=== PATIENT | female | born 1980 | race Hispanic/Latino ===

== ENCOUNTER 2016-10-09 01:39 | Emergency (ER) | payer OTHER ==
[~2016-10-09] VITALS: Ht 170.2 cm; Wt 82.6 kg
--- NOTE | 2016-10-09 01:52 | ED CARDIAC/CP/PALPITATIONS ---
History of Present Illness General Chief Complaint: General Adult Stated Complaint: " BIBA PER EMS CHEST PRESSURE" Source: patient, old records, EMS Exam Limitations: no limitations Vital Signs & Intake/Output Vital Signs & Intake/Output Vital Signs Date Time Temp Pulse Resp B/P Pulse O2 O2 Flow FiO2 Ox Delivery Rate 10/09 0203 99 Room Air 10/09 0144 98.5 79 20 106/57 99 Room Air Allergies Coded Allergies: duloxetine (From CYMBALTA) (STOMACH PAINS 10/09/16) Triage Note: PT BIBA FROM HOME S/P BEING WOKEN UP BY CHEST PRESSURE IN LEFT CHEST THAT WRAPS AROUND LEFT RIBS TO BACK. LEFT ARM TINGELING ALL THE WAY DOWN TO THE HAND. STATES CHEST FEELS TIGHT SO IT FEELS HARD TO BREATHE. PMH OF ASTHMA, DENIES COUGH. DR FRANCO AT BEDSIDE TO [facility] PT Triage Nurses Notes Reviewed? yes : No Patient currently breastfeeds: No HPI: Patient was awoken with a sharp stabbing substernal chest pain that radiated to her left arm and around the left side of her chest into her back. The pain is constant. No aggravating or mitigating factors. She's had similar symptoms in the past she is an asthma attack and had a lot of coughing but she has not been coughing at all recently. Patient denies any fevers or chills. She rates the pain at 6 out of 10. Past History Travel History Traveled to [place] past 21 day No Medical History Any Pertinent Medical History? see below for history Respiratory: asthma Musculoskeletal: chronic back pain Psychiatric: anxiety Surgical History Surgical History: non-contributory Psychosocial History What is your primary language Kazakh Tobacco Use: Never used ETOH Use: occasional use Illicit Drug Use: denies illicit drug use Family History Hx Contributory? No Review of Systems Review of Systems Constitutional: Reports: no symptoms. EENTM: Reports: no symptoms. Respiratory: Reports: no symptoms. Cardiovascular: Reports: see HPI, chest pain. GI: Reports: no symptoms. Genitourinary: Reports: no symptoms. Musculoskeletal: Reports: no symptoms. Skin: Reports: no symptoms. Neurological/Psychological: Reports: no symptoms. Hematologic/Endocrine: Reports: no symptoms. Immunologic/Allergic: Reports: no symptoms. All Other Systems: Reviewed and Negative Physical Exam Physical Exam General Appearance: well developed/nourished, alert, awake, anxious, moderate distress Head: atraumatic, normal appearance Eyes: Bilateral: PERRL, EOMI. Ears, Nose, Throat: normal pharynx, normal ENT inspection, hearing grossly normal Neck: normal inspection, supple, full range of motion, NO JVD Respiratory: normal breath sounds, chest non-tender, no respiratory distress, lungs clear Cardiovascular: regular rate/rhythm, normal peripheral pulses Gastrointestinal: normal bowel sounds, soft, non-tender Back: normal inspection, normal range of motion Extremities: normal inspection, normal capillary refill, normal range of motion, no edema Neurologic/Psych: no motor/sensory deficits, awake, alert, oriented x 3, normal mood/affect Skin: intact, normal color, warm/dry Core Measures ACS in differential dx? Yes ASA ordered for poss ACS? No-ACS ruled out Severe Sepsis Present: No Septic Shock Present: No Progress Differential Diagnosis: AMI, atrial fibrillation, costochondritis, hyperthyroid, musculoskeletal pain, myocarditis, pericarditis, pneumonia, pneumothorax, pulmonary embolism Plan of Care: Orders Procedure Date/time Status Telemetry/Is Project Manager 10/10 147 Active TROPONIN LEVEL 10/10 147 Complete HUMAN BETA HCG SCREEN 10/10 147 Complete D-DIMER 10/10 147 Complete COMPREHENSIVE METABOLIC PANEL 10/10 147 Complete CBC WITHOUT DIFFERENTIAL 10/10 147 Complete EKG 10/09 144 Active Current Medications Sig/Ángela Start time Last Medication Dose Stop Time Status Admin Ketorolac 30 MG ONCE ONE 10/090 CAN Tromethamine 10/09 0201 (Toradol) Laboratory Tests 10/09/16 0156: Anion Gap 10, Estimated GFR > 60, BUN/Creatinine Ratio 24.3, Glucose 126 H, Calcium 9.4, Total Bilirubin 0.4, AST 17, ALT 32, Alkaline Phosphatase 60, Troponin I < 0.01, Total Protein 7.0, Albumin 4.0, Globulin 3.0, Albumin/ Globulin Ratio 1.3, Total Beta HCG NEGATIVE, D-Dimer 405 H, CBC w Diff NO MAN DIFF REQ, RBC 4.13 L, MCV 83.6, MCH 27.8, RDW 15.1 H, MPV 7.9, Gran % 47.0, Lymphocytes % 39.7, Monocytes % 7.5, Eosinophils % 5.2 H, Basophils % 0.6, Absolute Granulocytes 2.7, Absolute Lymphocytes 2.3, Absolute Monocytes 0.4, Absolute Eosinophils 0.3, Absolute Basophils 0, PUBS MCHC 33.2 Diagnostic Imaging: Viewed by Me: CT Scan. Discussed w/RAD: CT Scan. Radiology Impression: PATIENT: SONIDO MORGAN PRESENT AGE: 35 PATIENT ACCOUNT NO: [id number] : 78 LOCATION: [facility] ORDERING PHYSICIAN: NITO FRANCO MD SERVICE DATE: 10/09/16 EXAM TYPE: CAT - CTA CHEST-PULMONARY EMBOLISM EXAMINATION: CT ANGIOGRAM OF THE CHEST WITH AND WITHOUT CONTRAST (CT PULMONARY ANGIOGRAM FOR PE) CLINICAL INFORMATION: Chest pain and elevated d-dimer. Evaluate for acute pulmonary embolism. COMPARISON: No relevant prior imaging available. TECHNIQUE: Prior to contrast administration, noncontrast localization images were obtained. Subsequently, multidetector volumetric imaging was performed from the thoracic inlet to below the diaphragms following the administration of 95 mL Optiray 350 intravenous contrast. No contrast reaction reported. Sagittal, coronal, and MIP oblique sagittal reformatted images were obtained on the CT workstation, uploaded to PACS, and reviewed. Total exam dose-length product 445.38 mGy-cm. FINDINGS: The timing of the contrast bolus injection provides adequate opacification of the pulmonary arterial vasculature. There is no central luminal filling defect to suggest the presence of an acute pulmonary embolism. Lung volumes are low. There is bibasilar subsegmental atelectasis. No overt consolidative disease. No pleural effusion or pneumothorax. There are two 3 mm pulmonary nodules within the right lower lobe adjacent to the major fissure one of which is well illustrated on axial image 191 of 399 series 2. These findings most likely represent intrapulmonary lymph nodes. A small calcified granuloma is also visualized within the right upper lobe best illustrated on axial image 176. The size of the heart is normal and there is no pericardial effusion. The thoracic aorta is normal and the origins of the major aortic branches are patent. There is no mediastinal or hilar adenopathy. No axillary adenopathy is visualized within the [id number] this examination. Visualized portions of the thoracic outlet including the thyroid gland are unremarkable. The chest wall is intact. No acute rib fracture. Visualized portions of the upper abdominal cavity reveal no abnormal finding. IMPRESSION: Lung volumes are low. There is no overt consolidative disease or effusion. There is no central luminal filling defect within the pulmonary arterial vessels to suggest the presence of an acute pulmonary embolism. VTE: negative DICTATED BY: JUNG FLOYD MD DATE/TIME DICTATED:10/09/16358 SYSTEM SPECIALIST:SATYA DATE/TIME TRANSCRIBED:358 CONFIDENTIAL, DO NOT COPY WITHOUT APPROPRIATE AUTHORIZATION. < Electronically signed in Other Vendor System> SIGNED BY: JUNG FLOYD MD 10/09/16 0414 Pre-Hospital EKG: NSR, no ST T wave changes Initial ED EKG: NSR, no ST T wave changes Rhythm Strip: normal sinus rhythm Departure Departure Disposition: HOME OR SELF CARE Condition: Stable Clinical Impression Primary Impression: Chest pain, unspecified Qualifiers: Chest pain type: other chest pain Qualified Code: R07.89 - Other chest pain Secondary Impressions: Anxiety Additional Instructions: RETURN IF SYMPTOMS WORSEN OR FOR ANY CONCERNS Departure Forms: Customer Survey General Discharge Information Critical Care Note Critical Care Note Critical Care Time: non-applicable
[2016-10-09 02:11] LABS: ABSOLUTE BASOPHIL COUNT 0 /CUMM (0.0-0.2); ABSOLUTE EOSINOPHIL COUNT 0.3 /CUMM (0.0-0.7); ABSOLUTE GRANULOCYTE CT 2.7 /CUMM (1.4-6.5); ABSOLUTE LYMPH COUNT 2.3 /CUMM (1.2-3.4); ABSOLUTE MONOCYTE COUNT 0.4 /CUMM (0.10-0.60); BASOPHIL % 0.6 % (0.0-2.0); EOSINOPHIL % 5.2 % (0-5); HEMATOCRIT 34.5 % (37-47); MEAN CORPUSCULAR HGB 27.8 PG (27.0-31.0); MEAN CORPUSCULAR HGB CONC 33.2 G/DL (33.0-37.0); MEAN CORPUSCULAR VOLUME 83.6 FL (81.0-99.0); MEAN PLATELET VOLUME 7.9 FL (7.4-10.4); PLATELET COUNT 237 /CUMM (130-400); RBC DISTRIBUTION WIDTH 15.1 % (11.5-14.5); RED BLOOD CELL CT 4.13 /CUMM (4.20-5.40); WHITE BLOOD CELL COUNT 5.7 /CUMM (4.8-10.8)
--- NOTE | 2016-10-09 04:14 | CT SCAN REPORT ---
EXAMINATION: CT ANGIOGRAM OF THE CHEST WITH AND WITHOUT CONTRAST (CT PULMONARY ANGIOGRAM FOR PE) CLINICAL INFORMATION: Chest pain and elevated d-dimer. Evaluate for acute pulmonary embolism. COMPARISON: No relevant prior imaging available. TECHNIQUE: Prior to contrast administration, noncontrast localization images were obtained. Subsequently, multidetector volumetric imaging was performed from the thoracic inlet to below the diaphragms following the administration of 95 mL Optiray 350 intravenous contrast. No contrast reaction reported. Sagittal, coronal, and MIP oblique sagittal reformatted images were obtained on the CT workstation, uploaded to PACS, and reviewed. Total exam dose-length product 445.38 mGy-cm. FINDINGS: The timing of the contrast bolus injection provides adequate opacification of the pulmonary arterial vasculature. There is no central luminal filling defect to suggest the presence of an acute pulmonary embolism. Lung volumes are low. There is bibasilar subsegmental atelectasis. No overt consolidative disease. No pleural effusion or pneumothorax. There are two 3 mm pulmonary nodules within the right lower lobe adjacent to the major fissure one of which is well illustrated on axial image 191 of 399 series 2. These findings most likely represent intrapulmonary lymph nodes. A small calcified granuloma is also visualized within the right upper lobe best illustrated on axial image 176. The size of the heart is normal and there is no pericardial effusion. The thoracic aorta is normal and the origins of the major aortic branches are patent. There is no mediastinal or hilar adenopathy. No axillary adenopathy is visualized within the [id number] this examination. Visualized portions of the thoracic outlet including the thyroid gland are unremarkable. The chest wall is intact. No acute rib fracture. Visualized portions of the upper abdominal cavity reveal no abnormal finding. IMPRESSION: Lung volumes are low. There is no overt consolidative disease or effusion. There is no central luminal filling defect within the pulmonary arterial vessels to suggest the presence of an acute pulmonary embolism. VTE: negative
[2016-10-09 04:27] VITALS: BP 101/62
== END 2016-10-09 04:28 ==
LOC: ERH 01:39
PROVIDERS: Emergency Medicine
DX: R07.9 Chest pain, unspecified (principal); F41.9 Anxiety disorder, unspecified
CPT/HCPCS: 93005; 93010; 96372; J1885

== ENCOUNTER 2016-12-05 13:24 | Emergency (ER) | payer OTHER ==
[~2016-12-05] VITALS: Ht 170.2 cm; Wt 81.6 kg
[2016-12-05 13:28] VITALS: BP 107/57
[2016-12-05] MEDS ORDERED: ALLEGRA ALLERG180 M1 PO (14:01)
[2016-12-05] MEDS ORDERED: TESSALON PERLE100 M1 PO (14:03)
[2016-12-05] MEDS ORDERED: ADVAIR 250-501 EACH INH (14:03)
[2016-12-05] MEDS ORDERED: PROAIR HFA8.5 GM INH (14:03)
[2016-12-05] MEDS ORDERED: MEDROL4 M2 PO (14:03)
--- NOTE | 2016-12-05 14:04 | ED DYSPNEA/ASTHMA COMPLAINT ---
History of Present Illness General Chief Complaint: Wheezing/Asthma Stated Complaint: ASTHMA SYMPTOMS Source: patient Exam Limitations: no limitations Vital Signs & Intake/Output Vital Signs & Intake/Output Vital Signs Date Time Temp Pulse Resp B/P B/P Pulse O2 O2 Flow FiO2 Mean Ox Delivery Rate 12/05 1406 98 Room Air 12/05 1328 97.3 70 20 107/57 98 Room Air Allergies Coded Allergies: duloxetine (From CYMBALTA) (STOMACH PAINS 10/09/16) Reconcile Medications Albuterol Sulfate (Proair Hfa) 90 MCG HFA.AER.AD 2 PUF INH Q4-6 PRN PRN sob Benzonatate (Tessalon Perle) 100 MG CAPSULE 1 CAP PO TID PRN cough Fexofenadine HCl (Zeinab Allergy) 180 MG TABLET 1 TAB PO DAILY ALLERGIES ( Reported) Fluticasone/Salmeterol (Advair 250-50 Diskus) 250 MCG-50 MCG/DOSE BLST.W.DEV 1 PUF INH BID asthma Methylprednisolone. (Medrol) 4 MG TAB.DS.PK 1 DP PO AD asthma 6 on day 1 then reduce by one tablet daily until gone Triage Note: Pt presents to ER c/o of asthma symptoms. Pt states her asthma always acts up with the heat. PT states her inhalers are and for the past three days she has been coughing and wheezing. Triage Nurses Notes Reviewed? yes Onset: Gradual Duration: day(s): (3) Timing: recent history Severity: moderate Activities at Onset: none Prior Episodes/Possible Cause: occasional episodes : No Patient currently breastfeeds: No HPI: Patient is a 36-year-old female with history of asthma, takes daily Advair and albuterol as needed for her asthma presenting to the emergency department with chief complaint worsening asthma, dry cough over the past 3 days. No fevers or chills. No chest pain or palpitations. Reports shortness of breath only with coughing. She reports that she just moved to the area and does not have any refills on her asthma medications and she ran out. Try to get an appointment with her primary care physician but they called of the day of her appointment. Denies any abdominal pain. No nausea or vomiting. No sick contacts or recent travel. Denies any lower extremity swelling. Nothing seems to make it better or worse. (IGNACIOESTHER PANIAGUA) Past History Travel History Traveled to [place] past 21 day No Medical History Any Pertinent Medical History? see below for history Respiratory: asthma Musculoskeletal: chronic back pain Psychiatric: anxiety Surgical History Surgical History: non-contributory Psychosocial History What is your primary language Welsh Tobacco Use: Never used Family History Hx Contributory? No (ESTHER MENDEZ) Review of Systems Review of Systems Constitutional: Reports: no symptoms. Comments Review of systems: See HPI, All other systems negative. Constitutional, no chills fever or weight loss HEENT: No visual changes no sore throat Cardiovascular: No chest pain ,palpitation , orthopnea or ankle swelling Skin, no jaundice no rashes Respiratory: No sputum or hemoptysis GI: No nausea no vomiting : No dysuria No hematuria Muscle skeletal: no back pain, no neck pain, Neurologic: No numbness no confusion, no headaches Psych: No stress anxiety or depression,. Heme/endocrine: No bruising no bleeding no polyuria or polydipsia Immunology: No splenectomy or history of AIDS (ESTHER MENDEZ) Physical Exam Physical Exam General Appearance: well developed/nourished, no apparent distress, alert, awake , comfortable Respiratory: wheezing Comments: Well-developed well-nourished person in no acute distress HEENT: Normal EENT exam, extraocular motion intact, no nystagmus. Pupils equally round and reactive to light and accommodation. Nose is atraumatic. External auditory canal and Tympanic membranes clear. Pharynx normal. No swelling or edema. Neck: Supple, no lymphadenopathy, normal range of motion without pain or tenderness Back: Nontender, no CVA tenderness. Full range of motion Cardiovascular: Regular rate and rhythms no murmurs rubs or gallops, normal JVP Respiratory: Chest nontender. No respiratory distress.minimal inspiratory wheeze / breath sounds to auscultation bilaterally at the bases. Try reactive cough on exam. Extremity: No edema Neuro: Alert oriented x3 Skin: No appreciable rash on exposed skin, skin is warm and dry. Psych: Mood and affect is normal, memory and judgment is normal. Core Measures ACS in differential dx? No Severe Sepsis Present: No Septic Shock Present: No (ESTHER MENDEZ) Progress Differential Diagnosis: asthma, pneumonia, bronchitis, sinusitis, postnasal drip , asthma exacerbation Plan of Care: Current Medications Sig/Ángela Start time Last Medication Dose Stop Time Status Admin Albuterol Sulfate 3 ML ONCE ONE 12/05 1400 UNVr (Proventil) 12/05 1401 Ipratropium [place] 2.5 ML ONCE ONE 12/05 1400 UNVr (Atrovent) 12/05 1401 Initial ED EKG: none Comments: 12/05/2016 2:01:50 PM on arrival patient no acute distress, she does have bilateral wheezing. She is without her asthma medication and therefore took the heel over the past, place have made her asthma worse. Positive dry cough. No chest pain or shortness of breath except for cough. Patient likely has eczema exacerbation versus bronchitis. Patient will be treated symptomatically. We will start her back on her albuterol inhaler and her Advair Diskus. Patient will be also put on a short course of steroids and cough medication. She'll follow up with her primary care physician. Patient had moderate relief with breathing treatment here in the emergency department. Medications were sent to [facility] pharmacy in [place]. Patient nontoxic. Vitals within normal range. (ESTHER MENDEZ) Departure Departure Time of Disposition: 1401 Disposition: HOME OR SELF CARE Condition: Stable Clinical Impression Primary Impression: Asthma exacerbation Referrals: PATIENT HAS NO PRIMARY CARE DR (PCP/Family) Additional Instructions: Follow-up with your primary care physician called me about it. Take albuterol, Advair and prednisone as prescribed. Increase fluids. Take Tessalon Perles as prescribed for cough. Return for worsening symptoms or concerns. Departure Forms: Customer Survey General Discharge Information Prescriptions: Current Visit Scripts Benzonatate (Tessalon Perle) 1 CAP PO TID PRN cough #30 CAP Methylprednisolone. (Medrol) 1 DP PO AD #1 DP 6 on day 1 then reduce by one tablet daily until gone Albuterol Sulfate (Proair Hfa) 2 PUF INH Q4-6 PRN PRN sob #1 INHAL Fluticasone/Salmeterol (Advair 250-50 Diskus) 1 PUF INH BID #1 INHAL (ESTHER MENDEZ) PA/[employer] Co-Sign Statement Statement: ED Attending supervision documentation- I saw and evaluated the patient. I have also reviewed all the pertinent lab results and diagnostic results. I agree with the findings and the plan of care as documented in the PA's/[employer]'s documentation. x I have reviewed the ED Record and agree with the PA's/[employer]'s documentation. [] Additions or exceptions (if any) to the PAs/[employer]'s note and plan are summarized below: [] (NYLA CROSS,SHAUNNA) Critical Care Note Critical Care Note Critical Care Time: non-applicable (IGNACIO MANN,ESTHER)
== END 2016-12-05 14:26 ==
LOC: ERH 13:24
DX: J45.901 Unspecified asthma with (acute) exacerbation (principal)
CPT/HCPCS: 1263

== ENCOUNTER 2018-02-03 14:27 | Emergency (ER) | payer OTHER ==
[~2018-02-03] VITALS: Ht 167.6 cm; Wt 83.9 kg
[~2018-02-03 14:27] MED LIST: ADVAIR 250-501 EACH INH; ALLEGRA ALLERG180 M1 PO; LOMOTIL 2.5-0.1 EACH PO; MEDROL4 M2 PO; PROAIR HFA8.5 GM INH; TESSALON PERLE100 M1 PO
[2018-02-03 18:04] LABS: ABSOLUTE BASOPHIL COUNT 0 /CUMM (0.0-0.2); ABSOLUTE EOSINOPHIL COUNT 0.2 /CUMM (0.0-0.7); ABSOLUTE GRANULOCYTE CT 1.9 /CUMM (1.4-6.5); ABSOLUTE LYMPH COUNT 1.7 /CUMM (1.2-3.4); ABSOLUTE MONOCYTE COUNT 0.3 /CUMM (0.10-0.60); BASOPHIL % 0.6 % (0.0-2.0); EOSINOPHIL % 5.2 % (0-5); GRANULOCYTE % 45.4 % (42.2-75.2); HEMATOCRIT 31.8 % (37-47); MEAN CORPUSCULAR HGB 26.4 PG (27.0-31.0); MEAN CORPUSCULAR HGB CONC 32.4 G/DL (33.0-37.0); MEAN CORPUSCULAR VOLUME 81.4 FL (81.0-99.0); MEAN PLATELET VOLUME 7.7 FL (7.4-10.4); PLATELET COUNT 237 /CUMM (130-400); RBC DISTRIBUTION WIDTH 15.6 % (11.5-14.5); RED BLOOD CELL CT 3.91 /CUMM (4.20-5.40); WHITE BLOOD CELL COUNT 4.1 /CUMM (4.8-10.8)
[2018-02-03 19:14] VITALS: BP 109/56
--- NOTE | 2018-02-03 19:30 | RADIOLOGY REPORT ---
EXAMINATION: XR LUMBOSACRAL SPINE CLINICAL INFORMATION: Back pain. COMPARISON: CTA chest 10/09/2016. TECHNIQUE: 4 views of the lumbosacral spine were obtained. FINDINGS: Degenerative changes are noted at L1-L2 and L5-S1 with some mild disc space narrowing and osteophyte formation. No bony destructive lesions are seen. There is an old fracture involving the pubic rami on the left. No acute fracture is seen. IMPRESSION: 1. Old fractures left pubic rami. 2. Degenerative changes lumbosacral spine.
[2018-02-03] MEDS ORDERED: LIDODERM1 EACH TOP (19:55)
[2018-02-03] MEDS ORDERED: PERCOCET 5-3251 EACH PO (19:55)
[2018-02-03] MEDS ORDERED: NAPROSYN500 M1 PO (19:55)
--- NOTE | 2018-02-03 19:57 | ED GENERAL ADULT ---
History of Present Illness General Chief Complaint: Low Back Pain/Injury Stated Complaint: BACK PAIN Source: patient Exam Limitations: no limitations Vital Signs & Intake/Output Vital Signs & Intake/Output Vital Signs Date Time Temp Pulse Resp B/P B/P Pulse O2 O2 Flow FiO2 Mean Ox Delivery Rate 02/03 1914 97.7 77 18 109/56 100 Room Air 02/03 1814 Room Air 02/03 1513 97.3 86 18 109/69 98 Room Air Room Air Allergies Coded Allergies: duloxetine (From CYMBALTA) (STOMACH PAINS 10/09/16) Reconcile Medications Albuterol Sulfate (Proair Hfa) 90 MCG HFA.AER.AD 2 PUF INH Q4-6 PRN PRN sob Benzonatate (Tessalon Perle) 100 MG CAPSULE 1 CAP PO TID PRN cough Diphenoxylate HCl/Atropine (Lomotil 2.5-0.025 MG Tablet) 2.5 MG-0.025 MG TABLET 1 TAB PO 4 TIMES/DAY PRN diarrhea Fexofenadine HCl (Zeinab Allergy) 180 MG TABLET 1 TAB PO DAILY ALLERGIES ( Reported) Fluticasone/Salmeterol (Advair 250-50 Diskus) 250 MCG-50 MCG/DOSE BLST.W.DEV 1 PUF INH BID asthma Lidocaine (Lidoderm) 5 % ADH..PATCH 1 PAT TOP DAILY PRN pain may wear up to 12 hours Methylprednisolone. (Medrol) 4 MG TAB.DS.PK 1 DP PO AD asthma 6 on day 1 then reduce by one tablet daily until gone Naproxen (Naprosyn) 500 MG TABLET 1 TAB PO BID PRN pain Oxycodone HCl/Acetaminophen (Percocet 5-325 MG Tablet) 5 MG-325 MG TABLET 1 TAB PO Q4 HRS NEEDED PRN pain Triage Note: PT TO ED WITH C/O RIGHT BACK PAIN DOWN LEG, RIGHT GROIN AREA, WORSE WITH MOVEMENT, DENIES URINARY PAIN OR BURNING. TRIED, MOTRIN 800MG "HELPED A LITTLE BIT, BUT NOT MUCH". Triage Nurses Notes Reviewed? yes Onset: Gradual Duration: day(s): Timing: constant : No Patient currently breastfeeds: No HPI: 37-year female with a history of asthma, diabetes, anxiety, chronic back pain presenting with acute on chronic back pain 2 days. Patient reports she had a back injury several years ago with fractures to her vertebrae and pelvis after she fell through an attic floor. Since the injury she gets recurrent sciatica. Presents now with right lower back pain that radiates down her right back and right lower extremity, pain is worse with movement. Feels like her prior sciatica. Has been using 800 mg of ibuprofen at home with only mild relief. Denies fevers, IV drug use, dysuria, urinary frequency/urgency, saddle anesthesia, urinary/bowel incontinence/retention. (Berkley Helton) Past History Travel History Traveled to [place] past 21 day No Medical History Any Pertinent Medical History? see below for history Neurological: NONE EENT: NONE Cardiovascular: NONE Respiratory: asthma Gastrointestinal: NONE Hepatic: NONE Renal: NONE Musculoskeletal: chronic back pain Psychiatric: anxiety Endocrine: diabetes Blood Disorders: NONE Cancer(s): NONE ASSOCIATE CHEMIST/Reproductive: NONE Surgical History Surgical History: non-contributory Psychosocial History What is your primary language Kinyarwanda Tobacco Use: Never used ETOH Use: denies use Illicit Drug Use: denies illicit drug use Family History Hx Contributory? No (Berkley Helton) Review of Systems Review of Systems Constitutional: Reports: no symptoms. EENTM: Reports: no symptoms. Respiratory: Reports: no symptoms. Cardiovascular: Reports: no symptoms. GI: Reports: no symptoms. Genitourinary: Reports: no symptoms. Musculoskeletal: Reports: see HPI. Skin: Reports: no symptoms. Neurological/Psychological: Reports: no symptoms. Hematologic/Endocrine: Reports: no symptoms. Immunologic/Allergic: Reports: no symptoms. All Other Systems: Reviewed and Negative (Berkley Helton) Physical Exam Physical Exam General Appearance: well developed/nourished, no apparent distress, alert, awake Comments: Gen.: Well-nourished, well-developed, no acute distress. Head: Normocephalic, atraumatic. Eyes: Normal inspection bilaterally Ears: Normal inspection bilaterally Nose: Normal inspection Neck: Normal inspection Lungs: clear to auscultation bilaterally, normnal breath sounds Heart: regular rate and rhythm Abdomen: soft and non-tender Extremities: Normal inspection bilateral lower extremities are neurovascularly intact, negative straight leg raise bilaterally, able to bear weight and ambulate with a steady gait Back: There is focal muscle spasm with tenderness to palpation in the right lower lumbar muscles, no midline tenderness to palpation, unrestricted spinal range of motion Neurologic: alert and oriented x3, steady gait Skin: warm and dry Psychiatric: Normal mood and affect, no apparent delusions or hallucinations, behavior appropriate Core Measures ACS in differential dx? No CVA/TIA Diagnosis: No Sepsis Present: No Sepsis Focused Exam Completed? No (Pedro MANN,Berkley) Progress Differential Diagnoses I considered the following diagnoses in my evaluation of the patient: [Muscular strain versus muscle spasm versus sciatica, low concern for vertebral fracture versus cauda equina versus epidural abscess] Plan of Care: Orders Procedure Date/time Status URINE 02/04 1656 Complete URINALYSIS 02/04 1656 Complete CBC WITHOUT DIFFERENTIAL 02/04 1656 Complete BASIC METABOLIC PANEL 02/04 1656 Complete Laboratory Tests 02/03/18 1810: Urine Color YEL, Urine Clarity CLEAR, Urine pH 6.0, Ur Specific [place] >= 1.030 , Urine Protein NEG, Urine Ketones NEG, Urine Nitrite NEG, Urine Bilirubin NEG, Urine Urobilinogen 0.2, Ur Leukocyte Esterase NEG, Ur Microscopic EXAM NOT REQUIRED, Urine Hemoglobin NEG, Urine Glucose NEG, Urine Test NEGATIVE 02/03/18 1747: Anion Gap 7, Estimated GFR > 60, BUN/Creatinine Ratio 23.3, Glucose 77, Calcium 8.9, CBC w Diff NO MAN DIFF REQ, RBC 3.91 L, MCV 81.4, MCH 26.4 L, MCHC 32.4 L, RDW 15.6 H, MPV 7.7, Gran % 45.4, Lymphocytes % 40.7, Monocytes % 8.1, Eosinophils % 5.2 H, Basophils % 0.6, Absolute Granulocytes 1.9, Absolute Lymphocytes 1.7, Absolute Monocytes 0.3, Absolute Eosinophils 0.2, Absolute Basophils 0 X-ray FINDINGS: Degenerative changes are noted at L1-L2 and L5-S1 with some mild disc space narrowing and osteophyte formation. No bony destructive lesions are seen. There is an old fracture involving the pubic rami on the left. No acute fracture is seen. IMPRESSION: 1. Old fractures left pubic rami. Urine was not concerning for infection, urine negative Trigger point injection was performed using Kenalog and bupivacaine. Patient reported immediate relief of her back pain. Additionally she was given IM Toradol which helped with her sciatic pain down her right leg. Likely with sciatica and discharged home with prescriptions for naproxen and Lidoderm patches, and Percocet to be used only for breakthrough pain. Counseled on supportive care and strict return precautions. Initial ED EKG: none (Berkley Helton) Departure Departure Disposition: HOME OR SELF CARE Condition: Stable Clinical Impression Primary Impression: Lumbar radiculopathy Referrals: Sam Lennon MD (PCP/Family) Additional Instructions: Use naproxen, Lidoderm patch, and Percocet as needed for pain. Apply warm compresses followed by gentle stretching 2-3 times daily. Follow-up with your primary care provider for reevaluation. Return to emergency department for any new or worsening symptoms. Departure Forms: Customer Survey General Discharge Information Prescriptions: Current Visit Scripts Naproxen (Naprosyn) 1 TAB PO BID PRN pain #60 TAB Lidocaine (Lidoderm) 1 PAT TOP DAILY PRN pain #30 PAT may wear up to 12 hours Oxycodone HCl/Acetaminophen (Percocet 5-325 MG Tablet) 1 TAB PO Q4 HRS NEEDED PRN pain #10 TAB (Berkley Helton) PA/TUNNEL KILN REPAIRER Co-Sign Statement Statement: ED Attending supervision documentation- I saw and evaluated the patient. I have also reviewed all the pertinent lab results and diagnostic results. I agree with the findings and the plan of care as documented in the PA's/TUNNEL KILN REPAIRER's documentation. x I have reviewed the ED Record and agree with the PA's/TUNNEL KILN REPAIRER's documentation. [] Additions or exceptions (if any) to the PAs/TUNNEL KILN REPAIRER's note and plan are summarized below: [] (Melchor CROSS,Jaspal) Critical Care Note Critical Care Note Critical Care Time: non-applicable (Berkley Helton)
== END 2018-02-03 20:04 ==
LOC: ERH 14:27
PROVIDERS: Physician Assistant
DX: M54.5 Low back pain (principal); R10.31 Right lower quadrant pain
CPT/HCPCS: 72110; 81003; 81025; 96372; J1885